=== PATIENT | female | born 1950 | race Caucasian/White ===

== ENCOUNTER 2017-06-22 08:14 | Day surgery (SDC) | payer OTHER, MEDICARE ==
[~2017-06-22] VITALS: Ht 165.1 cm; Wt 118.0 kg
[~2017-06-22 08:14] MED LIST: ASCA500 PO; ASPI-435 PO; CALC-393 PO; CALC-478 PO; COEN1CAP17 PO; CRAN500C2 PO; DICL1GEL12 TD; DPH/ PO; ERGO1CAP35 PO; POTA10CA28 PO; RIBO100T9 PO; [UNRECOGNIZED DRUG - CODE] PO; oxybutynin PO; premarin cream TOP
[2017-06-22 08:50] VITALS: BP 164/88; PULSE 66; TEMP 36.5; O2SAT 96; Ht 165.1 cm; Wt 118.0 kg
== END 2017-07-07 09:26 | disposition home or self-care (01) ==
LOC: C.MTU 08:14
PROVIDERS: ATTEND Internal Medicine Gastroenterology
DX: K91.2 Postsurgical malabsorption, not elsewhere classified (principal); Z53.09 Procedure and treatment not carried out because of other contraindication; R10.84 Generalized abdominal pain; R14.3 Flatulence

== ENCOUNTER → 2017-07-07 | Day surgery (SDC) | payer OTHER, MEDICARE ==
[~2017-07-07] VITALS: Ht 165.1 cm; Wt 118.0 kg
[2017-07-07 08:33] VITALS: BP 165/87; PULSE 67; TEMP 36.6; O2SAT 96; Ht 165.1 cm; Wt 118.0 kg
== END | disposition home or self-care (01) ==
LOC: C.MTU 08:16
PROVIDERS: ATTEND Internal Medicine Gastroenterology
DX: K91.2 Postsurgical malabsorption, not elsewhere classified (principal); R10.84 Generalized abdominal pain; R14.3 Flatulence

== ENCOUNTER → 2017-09-22 | Day surgery (SDC) | payer OTHER, MEDICARE ==
[2017-09-16 16:54] VITALS: Ht 165.1 cm; Wt 118.2 kg
[~2017-09-22] VITALS: Ht 165.1 cm; Wt 118.2 kg
[~2017-09-22] MED LIST changes: +5-HY1CAP3 PO; -ASCA500 PO; -ASPI-435 PO; +ASPI81CH2 PO; -CRAN500C2 PO; -DICL1GEL12 TD; -DPH/ PO; -ERGO1CAP35 PO; +ERGO500037 PO; +LIDOCAINE HCL 2% 2 ML VIAL (20MG/ML) ONE; +PEDICHW50 PO; -POTA10CA28 PO; +PROPOFOL IV EMULSION 10 MG/ML 20 ML VIAL ONE; -RIBO100T9 PO; +SODIUM CHLORIDE 0.9% 500ML 500 ML IV ONE; +[UNRECOGNIZED DRUG - CODE] PO; -[UNRECOGNIZED DRUG - CODE] PO; -oxybutynin PO; -premarin cream TOP
--- NOTE | 2017-09-22 12:29 | Endo History and Physical ---
History & Physical Date of Service: September 22, 2017. Chief Complaint: screening Referring Physician: Dr. Hernandez History of Present Illness 67 yo presenting for average risk colonoscopy Past Medical History Arthritis Past Surgical History Hx Cardiac Surgery: No Hx Internal Defibrillator: No Hx Pacemaker: No Hx Abdominal Surgery: Yes (APPENDECTOMY; HYSTERECTOMY; X 3; GASTRIC BYPASS (2008)) Hx of Implantable Prosthesis: No Hx Post-Op Nausea and Vomiting: No Hx Cancer Surgery: No Hx Thoracic Surgery: No Hx Orthopedic: Yes (BL TKA (2011); LEFT SHOULDER SURGERY, L COLLAR BONE) Hx Urinary Tract Surgery: No Family History IBD Social History Smoking Status: Former Smoker Hx Substance Use: No Hx Alcohol Use: Yes (OCCASIONALLY A GLASS OF WINE) Allergies Coded Allergies: Ciprofloxacin (Verified Allergy, Unknown, HIVES, 09/22/17) Penicillins (Verified Allergy, Unknown, HIVES, 09/22/17) Uncoded Allergies: adhesive tape (Adverse Reaction, Mild, RASH, 02/27/15) Current Medications Reported Home Medications Medications Dose Route/Sig Max Daily Dose Days Date Category Flintstones Chewable (Pediatric Multiple Vitamin W/) 1 Chw Chw 1 Tab PO BID 09/16/17 Reported [Mentha-Xl] 1 Tab PO TIDM 09/16/17 Reported 5-Htp (5-Hydroxytryptophan) 100 Mg Cap 1 Tab PO DAILY 09/16/17 Reported Aspirin 81 Mg Chw 1 Tab PO QPM 30 09/16/17 Reported Vitamin D 82011 Unit (Ergocalciferol) 50,000 Unit Cap 1 Cap PO WK 28 09/16/17 Reported Calcium (Calcium Carbonate) 600 Mg Tab 1 Tab PO DAILY 02/27/15 Reported Calcium & Magnesium + Zin 334-134-5 mg (Yzihlla-Mngwqtycg-Smxd) 1 Tab Tab 1 Tab PO BID 02/27/15 Reported Co Q 10 (Coenzyme Q10 (Ubidecarenone)) 100 Mg Cap 1 Cap PO DAILY 02/27/15 Reported Vital Signs Weight (Kilograms): 118.18 Height (Feet): 5 Height (Inches): 5 Date Time Temp Pulse Resp B/P (MAP) Pulse Ox O2 Delivery O2 Flow Rate FiO2 09/22/17 12:17 36.8 76 18 140/97 (111) 96 Room Air Physical Exam General Appearance: WD/WN, no apparent distress Respiratory/Chest: Respiratory effort: no dyspnea Auscultation: breath sounds normal, CTA except as noted Cardiovascular: Apical Impulse: not displaced Heart Auscultation: RRR, normal S1, normal S2 Abdomen: Inspection & Palpation: soft, non-distended, no tenderness, guarding & rebound Assessment and Plan 67 yo presenting for average risk colonoscopy
--- NOTE | 2017-09-22 13:40 | Anesthesiology Progress Note ---
Anesthesia Post Op Note Date & Time September 22, 2017 at 13:40 Vital Signs Pain Intensity: 0 Vital Signs Past 12 Hours Date Time Temp Pulse Resp B/P (MAP) Pulse Ox O2 Delivery O2 Flow Rate FiO2 09/22/17 12:17 36.8 76 18 140/97 (111) 96 Room Air Notes Mental Status: alert / awake / arousable, participated in evaluation Pt Amnestic to Procedure: Yes Nausea / Vomiting: adequately controlled Pain: adequately controlled Airway Patency, RR, SpO2: stable & adequate BP & HR: stable & adequate Hydration State: stable & adequate Anesthetic Complications: no major complications apparent
--- NOTE | 2017-09-22 13:41 | GI REPORT ---
Patient Name: Linda Yang Procedure Date: 09/22/2017 1:03 PM Date of : 1950 Admit Type: Outpatient Age: 67 Gender: Female Attending MD: Rob Marlow MD Procedure: Colonoscopy Providers: Rob Marlow MD Referring MD: Aissatou Hernandez Do Indications: Screening for colorectal malignant neoplasm Medicines: Monitored Anesthesia Care Complications: No immediate complications. Estimated blood loss: None. Estimated Blood Loss: Estimated blood loss: none. Procedure: Pre-Anesthesia Assessment: - Pre-Anesthesia Assessment: - Prior to the procedure, a History and Physical was performed, and patient medications, allergies and sensitivities were reviewed. The patient's tolerance of previous anesthesia was reviewed. Please see [facility] [employer] for complete details. - The risks and benefits of the procedure and the sedation options and risks were discussed with the patient. All questions were answered and informed consent was obtained. - Patient identification and proposed procedure were verified prior to the procedure by the physician and the nurse. The procedure was verified in the pre-procedure area in the procedure room. After obtaining informed consent, the endoscope was passed carefully and meticuously under direct vision and only advanced when the lumen was clearly identified, C02 insuflation was utilized throughout the entirity of the procedure. Throughout the procedure, the patient's blood pressure, pulse, and oxygen saturations were monitored continuously. After I obtained informed consent, the scope was passed under direct vision. Throughout the procedure, the patient's blood pressure, pulse, and oxygen saturations were monitored continuously. The scope was introduced through the anus and advanced to the cecum, identified by the appendiceal orifice, ileocecal valve and palpation. The quality of the bowel preparation was good. Findings: Multiple small-mouthed diverticula were found in the sigmoid colon. There was evidence of a prior end-to-side colo-colonic anastomosis in the sigmoid colon. This was patent and was characterized by healthy appearing mucosa. The terminal ileum appeared normal. Internal hemorrhoids were found during retroflexion. The exam was otherwise without abnormality on direct and retroflexion views. Impression: - Diverticulosis in the sigmoid colon. - Patent end-to-side colo-colonic anastomosis, characterized by healthy appearing mucosa. - The examined portion of the ileum was normal. - Internal hemorrhoids. - The examination was otherwise normal on direct and retroflexion views. - No specimens collected. Recommendation: - Written discharge instructions were provided to the patient. - Discharge patient to home (with escort). - Return to referring physician as previously scheduled. - Repeat colonoscopy in 10 years for screening purposes. Rob Marlow MD 09/22/2017 1:41:16 PM This report has been signed electronically. Note Initiated On: 09/22/2017 1:03 PM Number of Addenda: 0 I attest to the content of the Intraoperative Record and orders documented therein, exceptions below {[id number]}
--- NOTE | 2017-09-22 13:43 | Discharge Instructions ---
Endoscopy Patient Instructions Date / Procedure(s) Performed September 22, 2017. Colonoscopy Allergy Information Coded Allergies: Ciprofloxacin (Verified Allergy, Unknown, HIVES, 09/22/17) Penicillins (Verified Allergy, Unknown, HIVES, 09/22/17) Uncoded Allergies: adhesive tape (Adverse Reaction, Mild, RASH, 02/27/15) Discharge Date / Findings September 22, 2017. Findings: Multiple small-mouthed diverticula were found in the sigmoid colon. There was evidence of a prior end-to-side colo-colonic anastomosis in the sigmoid colon. This was patent and was characterized by healthy appearing mucosa. The terminal ileum appeared normal. Internal hemorrhoids were found during retroflexion. The exam was otherwise without abnormality on direct and retroflexion views. Impression: - Diverticulosis in the sigmoid colon. - Patent end-to-side colo-colonic anastomosis, characterized by healthy appearing mucosa. - The examined portion of the ileum was normal. - Internal hemorrhoids. - The examination was otherwise normal on direct and retroflexion views. - No specimens collected. Recommendation: - Written discharge instructions were provided to the patient. - Discharge patient to home (with escort). - Return to referring physician as previously scheduled. - Repeat colonoscopy in 10 years for screening purposes. Provider Instructions Activity Restrictions - No exercising or heavy lifting for 24 hours. - Do not drink alcohol the day of the procedure. - Do not drive a car or operate machinery until the day after the procedure. - Do not make any important decisions or sign important papers in 24 hours after the procedure. Following Day: - Return to full activity which may include returning to work/school. Diet Start your diet with liquids and light foods (jello, soup, juice, toast). Then eat your usual diet if not nauseated. Treatment For Common After Affects For mild abdominal pain, bloating, or excessive gas: - Rest - Eat lightly - Lie on right side Follow-Up Information Follow-up with Dr. Hernandez as scheduled Anesthesia Information What You Should Know You have had a procedure that required some medicine to reduce anxiety and discomfort. This treatment is called moderate sedation. After receiving the treatment, you may be sleepy, but you will be able to breathe on your own. The effects of the treatment may last for several hours. Follow these instructions along with Activity/Diet recommendations noted above: * Do NOT do anything where dizziness or clumsiness would be dangerous. * Rest quietly at home today, then you can be up and about tomorrow. * Have a responsible person stay with you the rest of today. * You may have had an I.V. today. If so, you may take the dressing off later today. Recommendations Call your doctor if: * Trouble breathing * Continuous vomiting for more than 24 hours * Temperature above 101 degrees * Severe abdominal pain or bloating * Pain not relieved by pain medicine ordered * There is increased drainage or redness from any incision * A large amount of rectal bleeding greater than 2-3 tablespoons. (If you had a polyp/s removed or have hemorrhoids, a small amount of blood - from the rectum is to be expected.) * You have any unanswered questions or concerns. IN THE EVENT OF A SERIOUS EMERGENCY, GO TO THE NEAREST EMERGENCY ROOM Your discharge instructions were prepared by provider Rob Marlow. Patient Instructions Signature Page Linda Yang Patient (or Guardian) Signature/Date: I have read and understand the instructions given to me by my caregivers. Caregiver/RN/Doctor Signature/Date: The above-named patient and/or guardian has received patient instructions on this date. + Original Patient Signature Page (only) stays with chart. Please make copy for patient.
[2017-09-22 14:03] VITALS: BP 132/77; PULSE 66; O2SAT 97
== END | disposition home or self-care (01) ==
LOC: C.GI 11:46
PROVIDERS: ATTEND Internal Medicine
DX: Z12.11 Encounter for screening for malignant neoplasm of colon (principal); K57.30 Diverticulosis of large intestine without perforation or abscess without bleeding; K64.8 Other hemorrhoids; K58.9 Irritable bowel syndrome, unspecified; Z90.89 Acquired absence of other organs; Z90.710 Acquired absence of both cervix and uterus; M19.90 Unspecified osteoarthritis, unspecified site; Z98.84 Bariatric surgery status; Z96.653 Presence of artificial knee joint, bilateral; Z87.891 Personal history of nicotine dependence; Z88.1 Allergy status to other antibiotic agents; Z88.0 Allergy status to penicillin